=== PATIENT | female | born 1945 | race Caucasian/White ===

== ENCOUNTER 2018-07-25 06:05 | Inpatient (IN) | END 2018-07-29 16:25 | disposition home or self-care (01) | DRG 252 ==

== ENCOUNTER 2018-07-30 22:22 | Emergency (ER) | END 2018-07-31 03:11 | disposition home or self-care (01) ==

== ENCOUNTER 2018-07-31 11:43 | Emergency (ER) | END 2018-07-31 13:30 | disposition home or self-care (01) ==

== ENCOUNTER 2018-07-31 15:46 | Emergency (ER) | END 2018-07-31 18:38 | disposition home or self-care (01) ==

== ENCOUNTER 2018-12-27 14:44 | Emergency (ER) | payer MEDICARE ==
[~2018-12-27] VITALS: Ht 149.9 cm; Wt 60.0 kg
[~2018-12-27 14:44] MED LIST: AMIN30LI PO; ASPI-535 PO; BUDE3CAP PO; CALC-143 PO; CHOL100062 PO; CIPR500T4 PO; DULO60CA59 PO; FLUT1AER INHALATION; GABA-526 PO; MONT10TA24 PO; MULT-105 PO; OMEG-172 PO; OXYB5TAB7 PO; PANT40TA4 PO; PEG15DRO4 OP; POTA20TA96 PO; VIT1CAPS42 PO
[2018-12-27 14:46] VITALS: BP 122/59; PULSE 102; RESP 16; Ht 149.9 cm; Wt 60.0 kg
[2018-12-27] MEDS ORDERED: IBUP-1561 PO (18:02)
--- NOTE | 2018-12-27 18:14 | ERD ---
ER Documentation Chief Complaint Chief Complaint GROUND LEVEL FALL 4 DAYS AGO C/O BACK AND HIP PAIN, HPI This is a 73-year-old female with history of kyphosis, osteoporosis and multiple lumbar and thoracic compression fractures presents to the ED status post ground- level fall 4 days ago. Patient states she fell onto her right side is sustained a bruise to her right hip. She is complaining of right hip pain, and right lower lumbar pain and requesting x-rays. She denies any loss of consciousness or head injury. She is able to ambulate with a walker. She takes ibuprofen for pain. No numbness, tingling, focal weakness of the extremities. No loss of bowel bladder control. No other complaints. ROS All systems reviewed and are negative except as per history of present illness. Medications Home Meds Active Scripts Ibuprofen* (Motrin*) 400 Mg Tab, 400 MG PO Q6H PRN for PAIN AND OR ELEVATED TEMP, #30 TAB Prov:ADI WELCH PA-C 12/27/18 Oxybutynin Chloride* (Ditropan*) 5 Mg Tab, 5 MG PO TID PRN for URINARY CATHETER, #15 TAB Prov:VELIA BRENNER MD 07/31/18 Ciprofloxacin Hcl* (Ciprofloxacin Hcl*) 500 Mg Tablet, 500 MG PO BID for 7 Days, TAB Prov:JOE MARTIN 07/31/18 Reported Medications Aspirin Ec (Aspir 81) 81 Mg Tablet.dr, 81 MG PO DAILY, #30 TAB 07/31/18 Peg 400/Hypromellose/Glycerin (ARTIFICIAL TEARS DROPS) 15 Ml Drops, 15 ML OP, BOTTLE 07/31/18 Omega3/Dha/Epa/Fish Oil/Vit D3 (Fish Oil-Vit D3 Softgel) 1 Each Capsule, 1 EACH PO, CAP 07/31/18 Amino Acids/Protein Hydrolys (PRO-STAT LIQUID) 30 Ml Liquid.pkt, 30 ML PO 07/31/18 Multivitamin with Minerals (Multivitamins with Minerals) 1 Each Tablet, 1 EACH PO, TAB 07/31/18 Cholecalciferol* (Vitamin D3*) 1,000 Unit Tablet, 2000 UNIT PO DAILY, TAB 07/31/18 Calcium Citrate/Vitamin D (Citracal-Vitamin D 200 MG-250) 1 Each Tablet, 1 EACH PO BID, TAB 11/15/18 Fluticasone-Vilanterol (Breo Ellipta Inhaler) 100-25 Mcg/Actuation Aer.pow.ba, 1 PUFF INHALATION DAILY, #1 INHALER 07/25/18 Potassium Chloride* (Potassium Chloride*) 20 Meq Tablet.er, 20 MEQ PO DAILY, TAB.SA 07/25/18 Montelukast Sodium* (Montelukast Sodium*) 10 Mg Tablet, 10 MG PO QHS, #30 TAB 07/25/18 Gabapentin* (Gabapentin*) 600 Mg Tablet, 600 MG PO TID, #90 TAB 07/25/18 Pantoprazole* (Pantoprazole*) 40 Mg Tablet.dr, 40 MG PO AC BREAKFAST, TAB 07/25/18 Vit C/E/Zn/Coppr/Lutein/Zeaxan (Preservision Areds 2 Softgel) 1 Each Capsule, 1 EACH PO QAM, CAP 07/25/18 Duloxetine Hcl* (Duloxetine Hcl*) 60 Mg Capsule.dr, 60 MG PO BID, #30 CAP 07/25/18 Budesonide EC* (Budesonide EC*) 3 Mg Capdr...er, 9 MG PO DAILY, TAB 07/25/18 Allergies Allergies: Coded Allergies: No Known Allergies (Unverified Allergy, Unknown, 07/31/18) PMhx/Soc History of Surgery: Yes (CATARACT BILATERAL, TONSILLECTOMY, HIP SURGERY,) Anesthesia Reaction: No Hx Neurological Disorder: No Hx Respiratory Disorders: Yes (COPD) Hx Cardiac Disorders: No Hx Psychiatric Problems: No Hx Miscellaneous Medical Probl: Yes (Peripheral vascular disease, Cholitis) Hx Alcohol Use: No Hx Substance Use: No Hx Tobacco Use: Yes Smoking Status: Never smoker Physical Exam Vitals Vital Signs Date Temp Pulse Resp B/P (MAP) Pulse Ox O2 O2 Flow FiO2 Time Delivery Rate 12/27/18 97.9 102 16 122/59 91 14:46 (80) Physical Exam Const: No acute distress. + Ambulating with walker Head: Atraumatic Eyes: Normal Conjunctiva ENT: Normal External Ears, Nose and Mouth. Neck: Full range of motion. No meningismus. Resp: Clear to auscultation bilaterally Cardio: Regular rate and rhythm, no murmurs Abd: Soft, non tender, non distended. Normal bowel sounds Skin: No lacerations or abrasions Back: + significant kyphosis of the thoracic spine. Mild tenderness to palpation of the right lower lumbar. No midline tenderness. No step-offs. Lower Extremity -right Skin: + Small ecchymosis over the right lateral hip. No lacerations or abrasions. Compartments: Soft Motor: Full active range of motion hip/knee/ankle/foot Sensation: Intact to light touch FDWS/MF/LF/P surfaces. Bones: + Mild tenderness to palpation over the right lateral hip. Nontender knee/proximal tibia/ malleoli/foot Joints: No effusion or laxity Pulses/Perfusion: 2+ DP, Capillary refill < 2 seconds Ext: No cyanosis, or edema Neur: Awake and alert Psych: Normal Mood and Affect Procedures/MDM LABS & DIAGNOSTIC IMAGING: PROCEDURE: XR right Hip. CLINICAL INDICATION: Trauma with pain. TECHNIQUE: AP and frog lateral views of the right hip were performed. 2 images COMPARISON: None. FINDINGS: Patient has undergone previous surgery on the right femur with a femoral nail and compression device in the femoral neck. There is no visible acute fracture. There are no significant degenerative changes in the hip. Prominent arterial calcifications are evident. IMPRESSION: 1. Previous right femoral fracture repair with no evidence of acute fracture or dislocation. 2. Peripheral artery disease. PROCEDURE: XR Lumbar Spine. CLINICAL INDICATION: Low back pain. Trauma, trap and fall TECHNIQUE: AP, lateral and cone-down lateral views of the lumbar spine were obtained. 4 images. COMPARISON: Previous CT chest dated 06/22/2016 FINDINGS: Bony alignment: Normal. Vertebral body heights: There extremely severe anterior compression fractures of what appear to be T8, T11, T12, superior endplate compression of L1 through L4. On the prior chest CT the severe fracture of T8 was present. The T11 compression fracture is new. The T12 compression fracture is old. The lumbar superior endplate compressions also appear to be old were visible. Disc heights: Grossly maintained. Enthesopathy: Mild. Facet joints: Not well visualized. Posterior elements: Not well visualized. Aortic calcifications: Severe. Other soft tissues: Unremarkable. IMPRESSION: 1. Multiple compression fractures in the thoracic and lumbar spine with the T11 compression fracture appearing to be new since 2016. 2. Severe aortic atherosclerotic disease. MEDICAL DECISION MAKING: This is a 73-year-old female with history of osteoporosis, kyphosis and compression lumbar fractures presents with right hip and right lower back pain status post mechanical trip and fall at home. Patient has evidence of trauma to her right hip on physical exam. She is otherwise neurovascular intact. Her x- ray as above she has no acute fracture or dislocation of the right hip. X-ray of the lower lumbar did show a new T11 compression fracture as above. History and physical not consistent with cauda equina, spinal cord injury, spinal mass, or any other emergent process. Patient was discharged home with copies of her x-rays. I recommended she follow-up with her orthopedist, otherwise return here for any new or worsening symptoms. PRESCRIPTIONS: Motrin SPECIALIST FOLLOW UP RECOMMENDED: Orthopedist Patient has been advised to follow up with primary care in 1-2 days. Departure Diagnosis: Primary Impression: Back pain Back pain location: low back pain Chronicity: chronic Back pain laterality: right Sciatica presence: without sciatica Qualified Codes: M54.5 - Low back pain; G89.29 - Other chronic pain Additional Impressions: Contusion, hip Encounter type: initial encounter Laterality: right Qualified Codes: S70.01XA - Contusion of right hip, initial encounter Fall Encounter type: initial encounter Qualified Codes: W19.XXXA - Unspecified fall, initial encounter Condition: Stable Patient Instructions: Fall, Mechanical, Fall Prevention Additional Instructions: Call your primary care doctor TOMORROW for an appointment during the next 2-4 days and bring all the information and medications prescribed. If the symptoms get worse and your provider is unavailable, return to the Emergency Department immediately. ADI WELCH PA-C Dec 27, 2018 18:14
== END 2018-12-27 18:12 | disposition home or self-care (01) ==
LOC: FTE 14:44
DX: S70.01XA Contusion of right hip, initial encounter (principal); S39.92XA Unspecified injury of lower back, initial encounter; J44.9 Chronic obstructive pulmonary disease, unspecified; W18.39XA Other fall on same level, initial encounter; Y92.9 Unspecified place or not applicable; Z79.82 Long term (current) use of aspirin; Z87.891 Personal history of nicotine dependence
CPT/HCPCS: 72100; 73510

== ENCOUNTER 2019-01-14 11:32 | Emergency (ER) | payer MEDICARE ==
[~2019-01-14] VITALS: Ht 149.9 cm; Wt 56.8 kg
[~2019-01-14 11:32] MED LIST changes: +IBUP-1561 PO
[2019-01-14 11:45] VITALS: BP 149/73; PULSE 82; RESP 18; Ht 149.9 cm; Wt 56.8 kg
[2019-01-14] MEDS ORDERED: ONDANSETRON 4 MG INJ IV STA (14:04)
[2019-01-14] MEDS ORDERED: morphine 4 MG/ML VIAL IV STA (14:04)
[2019-01-14] MEDS ORDERED: FLUT1BLS INHALATION (16:47)
[2019-01-14] MEDS ORDERED: PANT40TA4 PO (16:47)
[2019-01-14] MEDS ORDERED: SACC250C PO (16:48)
[2019-01-14] MEDS ORDERED: DULO60CA59 PO (16:49)
[2019-01-14] MEDS ORDERED: IBUP-1541 PO (16:50)
[2019-01-14] MEDS ORDERED: BUDE3CAP PO (16:50)
[2019-01-14] MEDS ORDERED: GABA-526 PO (16:51)
[2019-01-14] MEDS ORDERED: MONT10TA24 PO (16:51)
[2019-01-14] MEDS ORDERED: DONE10TA7 PO (16:52)
[2019-01-14] MEDS ORDERED: IPRA3AMP29 INHALATION (16:52)
[2019-01-14] MEDS ORDERED: VIT1CAPS10 PO (16:53)
--- NOTE | 2019-01-14 17:45 | ERD ---
ER Documentation Chief Complaint Chief Complaint lower back pain x 3 weeks, worsening x 2 days HPI This is a pleasant 73-year-old female here for back pain. Apparently she had a fall a few weeks ago and suffered some compression fractures that were found on plain radiographs. She is continuing to have some lower thoracic and lumbar pain. She has a new symptom of some radiation down to the lateral part of her left thigh but no weakness numbness loss of bowel or bladder. ROS All systems reviewed and are negative except as per history of present illness. Medications Home Meds Reported Medications Vit A/Vit C/Vit E/Zinc/Copper (Preservision Areds Softgel) 1 Each Capsule, 1 EACH PO BID, CAP 01/14/19 Ipratropium-Albuterol (Ipratropium-Albuterol) 0.5-3 Mg/3 Ml Ampul.neb, 3 ML INHALATION Q4H, #30 VIAL 01/14/19 Donepezil* (Donepezil*) 10 Mg Tablet, 10 MG PO DAILY, #30 TAB 01/14/19 Montelukast Sodium* (Montelukast Sodium*) 10 Mg Tablet, 10 MG PO QHS, #30 TAB 01/14/19 Gabapentin* (Gabapentin*) 600 Mg Tablet, 600 MG PO Q8H, #90 TAB 01/14/19 Ibuprofen* (Ibuprofen*) 400 Mg Tablet, 400 MG PO Q6H PRN for PAIN, TAB 01/14/19 Budesonide EC* (Budesonide EC*) 3 Mg Capdr...er, 6 MG PO DAILY, TAB 01/14/19 Duloxetine Hcl* (Duloxetine Hcl*) 60 Mg Capsule.dr, 60 MG PO BID, #30 CAP 01/14/19 Saccharomyces Boulardii* (Florastor*) 250 Mg Cap, 250 MG PO DAILY, CAP 01/14/19 Pantoprazole* (Pantoprazole*) 40 Mg Tablet.dr, 40 MG PO AC BREAKFAST, TAB 01/14/19 Fluticasone/Vilanterol (Breo Ellipta 200-25 Mcg INH) 1 Each Blst.w.dev, 1 PUFF INHALATION DAILY, #1 INHALER 01/14/19 Discontinued Reported Medications Aspirin Ec (Aspir 81) 81 Mg Tablet.dr, 81 MG PO DAILY, #30 TAB 07/31/18 Peg 400/Hypromellose/Glycerin (ARTIFICIAL TEARS DROPS) 15 Ml Drops, 15 ML OP, BOTTLE 07/31/18 Omega3/Dha/Epa/Fish Oil/Vit D3 (Fish Oil-Vit D3 Softgel) 1 Each Capsule, 1 EACH PO, CAP 07/31/18 Amino Acids/Protein Hydrolys (PRO-STAT LIQUID) 30 Ml Liquid.pkt, 30 ML PO 07/31/18 Multivitamin with Minerals (Multivitamins with Minerals) 1 Each Tablet, 1 EACH PO, TAB 07/31/18 Cholecalciferol* (Vitamin D3*) 1,000 Unit Tablet, 2000 UNIT PO DAILY, TAB 07/31/18 Calcium Citrate/Vitamin D (Citracal-Vitamin D 200 MG-250) 1 Each Tablet, 1 EACH PO BID, TAB 07/31/18 Fluticasone-Vilanterol (Breo Ellipta Inhaler) 100-25 Mcg/Actuation Aer.pow.ba, 1 PUFF INHALATION DAILY, #1 INHALER 07/25/18 Potassium Chloride* (Potassium Chloride*) 20 Meq Tablet.er, 20 MEQ PO DAILY, TAB.SA 07/25/18 Montelukast Sodium* (Montelukast Sodium*) 10 Mg Tablet, 10 MG PO QHS, #30 TAB 07/25/18 Gabapentin* (Gabapentin*) 600 Mg Tablet, 600 MG PO TID, #90 TAB 07/25/18 Pantoprazole* (Pantoprazole*) 40 Mg Tablet.dr, 40 MG PO AC BREAKFAST, TAB 07/25/18 Vit C/E/Zn/Coppr/Lutein/Zeaxan (Preservision Areds 2 Softgel) 1 Each Capsule, 1 EACH PO QAM, CAP 07/25/18 Duloxetine Hcl* (Duloxetine Hcl*) 60 Mg Capsule.dr, 60 MG PO BID, #30 CAP 07/25/18 Budesonide EC* (Budesonide EC*) 3 Mg Capdr...er, 9 MG PO DAILY, TAB 07/25/18 Discontinued Scripts Ibuprofen* (Motrin*) 400 Mg Tab, 400 MG PO Q6H PRN for PAIN AND OR ELEVATED TEMP, #30 TAB Prov:DISHIGRIKIAN,ZEPYUR N PA-C 12/27/18 Oxybutynin Chloride* (Ditropan*) 5 Mg Tab, 5 MG PO TID PRN for URINARY CATHETER, #15 TAB Prov:VELIA BRENNER MD 07/31/18 Ciprofloxacin Hcl* (Ciprofloxacin Hcl*) 500 Mg Tablet, 500 MG PO BID for 7 Days, TAB Prov:JOE MARTIN 07/31/18 Allergies Allergies: Coded Allergies: No Known Allergies (Unverified Allergy, Unknown, 01/14/19) PMhx/Soc History of Surgery: Yes (CATARACT BILATERAL, TONSILLECTOMY, HIP SURGERY,) Anesthesia Reaction: No Hx Neurological Disorder: No Hx Respiratory Disorders: Yes (COPD) Hx Cardiac Disorders: No Hx Psychiatric Problems: No Hx Miscellaneous Medical Probl: Yes (Peripheral vascular disease, Cholitis) Hx Alcohol Use: No Hx Substance Use: No Hx Tobacco Use: Yes Smoking Status: Current every day smoker FmHx Family History: No coronary disease Physical Exam Vitals Vital Signs Date Temp Pulse Resp B/P (MAP) Pulse Ox O2 O2 Flow FiO2 Time Delivery Rate 01/14/19 97.7 82 18 149/73 95 11:45 (98) Physical Exam Const: Well-developed, well-nourished Head: Atraumatic, normocephalic Eyes: Normal Conjunctiva, PERRLA, EOMI, normal sclera, no nystagmus ENT: Normal External Ears, Nose and Mouth, moist mucus membranes. Neck: Full range of motion. No meningismus, no lymphadenopathy. Resp: Clear to auscultation bilaterally, no wheezing, rhonchi, rales Cardio: Regular rate and rhythm, no murmurs, S1 S2 present Abd: Soft, non tender x 4, non distended. Normal bowel sounds, no guarding or rebound, no pulsitile abdominal masses or bruits Skin: No petechiae or rashes, no ecchymosis , no maculopapular rash Back: Kyphotic thoracic spine some tenderness to the lower thoracic upper lumbar's negative straight leg test Ext: No cyanosis, or edema, FROM x 4, normal inspection, neurovascularly intact x 4 Neur: Awake and alert, STR 5/5 x 4, sensation intact x 4, no focal findings, cerebellum intact Psych: Normal Mood and Affect Results 24 hrs Current Medications Medications Dose Sig/Lynette Start Time Status Last (Trade) Ordered Route PRN Stop Time Admin Dose Reason Admin Morphine 4 mg ONCE STAT 01/14/19 DC 01/14/19 Sulfate IV 14:04 01/14/19 14:14 (morphine) 14:05 Ondansetron 4 mg ONCE STAT 01/14/19 DC 01/14/19 HCl (Zofran IV 14:04 01/14/19 14:14 Inj) 14:05 Procedures/MDM MR #: [id number] DOS: 01/14/19 1404 Ordering MD: JOSE ANTONIO KIRKLAND DO Location: E/R Room/Bed: PROCEDURE: CT THORACIC SPINE CLINICAL INDICATION: Trauma TECHNIQUE: CT scan of the thoracic spine was performed on a multi-slice scanner. No IV contrast was administered. Coronal and sagittal reformatted images were obtained from the axial source images. Images were reviewed on a high-resolution PACS workstation. Dose report: The total exam DLP equals 516.24 mGy-cm. The CDTI volume was 14.42 mGy. One or more of the following dose reduction techniques were used: - Automated exposure control. - Adjustment of the mA and/or kV according to patient size . - Use of iterative reconstruction technique. Images were reviewed on a high-resolution PACS workstation. DICOM images are available. COMPARISON: DR CHEST 07/26/2018; CT CHEST 06/22/2016. FINDINGS: Osteopenia. Left convex curvature of the thoracic spine. Exaggerated kyphosis. Minimal anterior wedging of T5, moderate anterior wedging of T6, mild anterior wedging of T7, severe compression deformity of the T8/vertebral plana, compression fracture of T11 with approximately 70% height loss, and compression fracture of T12/vertebral plana as well as mild compression deformities of L1, L2 and L3. 4 mm retropulsion of the superior endplate of T12 and mild retropulsion of the superior endplates of L1, T11 and mild retropulsion of the posterior cortex T8 measuring 3 mm. Multilevel anterior osteophyte formation and multilevel mild disc height loss as well as areas of disc widening due to fracture. Multilevel facet hypertrophy. Mild to moderate spinal canal stenosis at T11-T12 and likely mild at T8. Multilevel neural foraminal narrowing throughout the thoracic spine most prominent in the upper and lower thoracic spine. Diffuse aortic calcifications. Multiple sub centimeter mildly prominent mediastinal lymph nodes. Limited evaluation of the upper abdominal organs without contrast, without definite mass identified in the visualized portions. Mildly diminutive spleen. Emphysematous changes of the bilateral lungs 4 mm right lower lobe nodule present on prior CT may be focal scarring, with additional focus of scarring slightly more inferiorly. Calcified granuloma in the left lower lobe noted again. 2 mm nodule in the superior segment of the left lower lobe present on prior CT. Additional scattered less than 2 mm nodular foci are also present on prior CT. with scarring of the lung apices. Vascular calcifications throughout. Metallic densities posterior to the T10 and T11 levels, outside of the body. IMPRESSION: 1. Osteopenia. 2. Multiple compression fractures throughout the thoracic spine and visualized upper lumbar spine most prominent at T8, T12 and T11. T11 fracture was not present on prior chest CT but may not be acute. Consider MRI for further evaluation. 3. Exaggerated kyphosis of the thoracic spine and multilevel degenerative changes as detailed above with likely mild to moderate spinal canal stenosis at T11-T12 and mild at T8. Multilevel neural foraminal narrowing throughout the thoracic spine. 4. Emphysematous changes of the lungs with stable small nodular foci which may be scarring. Atherosclerotic calcification of the aorta. 5. Nonspecific sub centimeter mediastinal lymph nodes slightly more prominent than the prior CT. RPTAT: BBDD Physician Hamzah Date Time Electronically viewed and signed by Gissell Yu Physician on 01/14/2019 16:47 RG/ CC: JOSE ANTONIO KIRKLAND DO [id number] Patient: VANE QUILES : 1945 Age: 73 Sex: F MR #: [id number] DOS: 01/14/19 1404 Ordering MD: JOSE ANTONIO KIRKLAND DO Location: E/R Room/Bed: PROCEDURE: CT LUMBAR SPINE WITHOUT CONTRAST CLINICAL INDICATION: Trauma TECHNIQUE: CT scan of the lumbar spine was performed on a multi -slice scanner. No IV contrast was administered. Coronal and sagittal reformatted i mages were obtained from the axial source images. The total exam DLP equals 270.59 mGy-cm. The CDTI volume was 10 fully 33 mGy. One or more of the following dose reduction techniques were used: - Automated exposure control. - Adjustment of the mA and/or kV according to patient size . - Use of iterative reconstruction technique. Images were reviewed on a high-resolution PACS workstation. COMPARISON: None. FINDINGS: Osteopenia. 5 non-rib bearing lumbar type vertebral bodies. Left convex curvature of the upper lumbar spine. Lumbar lordosis is maintained. T11 compression fracture with approximately 70% height loss, T12 compression fracture/vertebral plana, and compression deformities of L1-L5 with approximately 30% height loss at L1, 25% at L2, 40% at L3, 50% at L4 and 30% at L5. There is faint contour irregularity of the inferior endplate of L5. Mild degenerative changes of the visualized portions of the SI joints. No definite acute sacral fracture identified. Paravertebral muscle bulk is intact in its visualized portions. Atherosclerotic calcification throughout the visualized arteries. Findings at specific disc levels: T12-L1: Widening of the disc due to fracture. Mild facet hypertrophy. Moderate to severe bilateral neural foraminal narrowing. Disc osteophyte complex with borderline mild spinal canal stenosis. L1-L2: Widening of the disc due to fracture. Mild facet hypertrophy. Moderate to severe right and mild left neural foraminal narrowing. Broad-based disc bulge without significant spinal canal stenosis. L2-L3: Widening of the disc due to fracture. Bilateral facet hypertrophy. Disc osteophyte complex with moderate to severe right and moderate left neural foraminal narrowing. Disc osteophyte complex with mild spinal canal stenosis. L3-L4: Widening of the disc due to fracture. Mild facet hypertrophy. Disc osteophyte complex with moderate bilateral neural foraminal narrowing and mild to moderate spinal canal stenosis. L4-L5: Widening of the disc due to fracture. Mild facet hypertrophy. Broad-based disc bulge with mild to moderate spinal canal stenosis and subarticular recess narrowing as well as moderate to severe left and moderate right neural foraminal narrowing. L5-S1: Disc height is maintained. Mild facet hypertrophy. Broad-based disc bulge and osteophytic ridging in the foraminal zones with moderate to severe left and moderate right neural foraminal narrowing. No significant acquired spinal canal stenosis per IMPRESSION: 1. Osteopenia. 2. Compression deformities throughout the visualized lumbar spine and lower thoracic spine as above. There is slight contour irregularity of the inferior endplate of L5, and acute component cannot be completely excluded. Consider MRI for further evaluation. 3. Multilevel degenerative disc and facet disease with multilevel spinal canal stenosis and neural foraminal narrowing as detailed above level by level. RPTAT: BBDD Physician Hamzah Date Time Electronically viewed and signed by Gissell Yu Physician on 01/14/2019 16:57 RG/ CC: JOSE ANTONIO KIRKLAND DO [id number] Patient says she will go home on pain meds and follow-up with orthopedics. She says she is able to do her activities of daily living. We will provide her with some pain medication and copies of scans and CD Departure Diagnosis: Primary Impression: Compression fracture of body of thoracic vertebra Additional Impression: Compression fracture of lumbar vertebra Encounter type: initial encounter Lumbar vertebra fracture level: L4 Fracture type: closed Qualified Codes: S32.040A - Wedge compression fracture of fourth lumbar vertebra, initial encounter for closed fracture Condition: Stable JOSE ANTONIO KIRKLAND DO January 14, 2019 17:45
[2019-01-14] MEDS ORDERED: METH500T PO (17:49)
[2019-01-14] MEDS ORDERED: HYDR-3980 PO (17:49)
== END 2019-01-14 18:18 | disposition home or self-care (01) ==
LOC: E/R 11:32
DX: S22.000A Wedge compression fracture of unspecified thoracic vertebra, initial encounter for closed fracture (principal); J44.9 Chronic obstructive pulmonary disease, unspecified; F17.210 Nicotine dependence, cigarettes, uncomplicated; S32.040A Wedge compression fracture of fourth lumbar vertebra, initial encounter for closed fracture; W18.39XA Other fall on same level, initial encounter; Y92.9 Unspecified place or not applicable
CPT/HCPCS: 72128; 72131; 96374; 96375; 99285; J2270; J2405